=== PATIENT | male | born 1945 | race African-American/Black ===

== ENCOUNTER 2018-04-22 09:33 | Emergency (ER) | payer OTHER ==
[~2018-04-22] VITALS: Ht 152.4 cm; Wt 63.6 kg
[2018-04-22] MEDS ORDERED: PLAVIX75 MG PO (09:48)
[2018-04-22] MEDS ORDERED: ASPIRIN EC325 MG PO (09:48)
[2018-04-22] MEDS ORDERED: ATORVASTATIN CA80 MG PO (09:48)
[2018-04-22] MEDS ORDERED: ZESTRIL40 MG PO (09:49)
[2018-04-22] MEDS ORDERED: VITAMIN D31000 UNI1 PO (09:49)
[2018-04-22] MEDS ORDERED: AMLODIPINE BESYL5 MG PO (09:49)
[2018-04-22] MEDS ORDERED: HYDRALAZINE25 MG PO (09:49)
[2018-04-22] MEDS ORDERED: ISOSORB MONO30 MG PO (09:50)
[2018-04-22] MEDS ORDERED: COREG25 MG PO (09:50)
[2018-04-22 09:58] LABS: HEMATOCRIT 38.1 % (39.0-50.0); HEMOGLOBIN 12.2 g/dl (14.0-18.0); IMMATURE GRANULOCYTES 0.8 % (0.0-5.0); MEAN CELL VOLUME 87.8 fL CALC (80.0-100.0); MEAN CORPUSCULAR HGB 28.1 pG CALC (26.0-32.0); NEUT# 9.35 thou/uL (1.82-7.42); RED BLOOD COUNT 4.34 mill/uL (4.70-6.10); RED CELL DISTRI WIDTH 14.7 % (11.5-15.5)
[2018-04-22 10:08] LABS: INTERNATIONAL NORMALIZED RATIO 1.3 RATIO (0.7-1.3); PROTHROMBIN TIME 13.3 SECONDS (9.0-12.5)
[2018-04-22 10:09] LABS: ANION GAP 15 (6-22 (CALC)); BUN 16 mg/dL (8-23); BUN/CREATININE RATIO 13 (12-20 (CALC)); CARBON DIOXIDE 21 mmol/l (22-30); CHLORIDE 108 mmol/l (95-108); CREATININE 1.2 mg/dL (0.7-1.3); GFR 59 ML/MIN (>=60 (CALC)); GFR FOR AFR.AMER. > 60 ML/MIN (>=60 (CALC)); POTASSIUM 4.9 mmol/l (3.5-5.1); SODIUM 139 mmol/l (137-146)
[2018-04-22 10:22] VITALS: BP 127/52
== END 2018-04-22 10:22 | disposition short-term general hospital (02) | DRG 282 ==
LOC: ED 09:33
PROVIDERS: Family Medicine
DX: I21.09 ST elevation (STEMI) myocardial infarction involving other coronary artery of anterior wall (principal); R07.9 Chest pain, unspecified; I10 Essential (primary) hypertension; Z86.73 Personal history of transient ischemic attack (TIA), and cerebral infarction without residual deficits; Z95.5 Presence of coronary angioplasty implant and graft

== ENCOUNTER 2018-05-29 21:17 | Emergency (ER) | payer OTHER ==
[~2018-05-29 21:17] MED LIST: AMLODIPINE BESYL5 MG PO; ASPIRIN EC325 MG PO; ATORVASTATIN CA80 MG PO; COREG25 MG PO; HYDRALAZINE25 MG PO; ISOSORB MONO30 MG PO; PLAVIX75 MG PO; VITAMIN D31000 UNI1 PO; ZESTRIL40 MG PO
== END 2018-05-29 23:10 | disposition expired | DRG 298 ==
LOC: ED 21:17
PROC: 5A12012 Performance of Cardiac Output, Single, Manual (ICD-10-PCS; principal; 2018-05-29)
DX: I46.9 Cardiac arrest, cause unspecified (principal); I10 Essential (primary) hypertension; Z86.73 Personal history of transient ischemic attack (TIA), and cerebral infarction without residual deficits; Z95.5 Presence of coronary angioplasty implant and graft